=== PATIENT | female | born 1990 ===

== ENCOUNTER 2016-07-31 01:33 | Emergency (ER) | payer SELFPAY ==
--- NOTE | 2016-07-31 02:10 | ED CLINICAL REPORT ---
Clinical Report - Physicians/Mid Levels [facility] [address] [place] [address] 07/31/2016 1:34 Patient: NANCY MULLINS Time Seen: 01:55. Arrived- By private vehicle. Historian- patient. HISTORY OF PRESENT ILLNESS Chief Complaint: SKIN RASH. This started about 3 days ago and is still present. It is described as itchy. It has been located on the trunk, right upper extremity and right lower extremity. A possible cause has been identified (PT states she is homeless, and has been staying somewhere different every night. She woke up with the lesions one morning. Pt thinks she's been bitten, but is not sure by what.). Similar symptoms previously: None. Recent medical care: Not recently seen/assessed. REVIEW OF SYSTEMS No fever, chills, sore throat, cough or hoarseness. No lump in throat, enlarged lymph nodes, headache, eye irritation or chest pain. No abdominal pain, nausea, diarrhea, difficulty with urination or joint pain. No vomiting. The patient has had mild difficulty breathing (PT states she has been wheezing.). Dental pain. All systems otherwise negative, except as recorded above. SOCIAL HISTORY Smoker- current status unknown. History of drug use opiates: marijuana. No alcohol use. ADDITIONAL NOTES The nursing notes have been reviewed. PHYSICAL EXAM Vital Signs: 07/31/2016 01:39 BP: 117/76. HR: 114. RR: 19. O2 saturation: 98%. Temp: 98.2 F. Pain level now: 6/10. Have been reviewed. Appearance: Alert. Oriented X3. No acute distress. Eyes: Pupils equal, round and reactive to light. Conjunctivae and eyelids normal. ENT: Nose normal. ( Pt has severe dental decay, with multiple tender teeth, but no swelling of gingiva or fluctuance.). Neck: Neck supple. CVS: Normal heart rate and rhythm. Heart sounds normal. Respiratory: No respiratory distress. Expiratory moderate bilateral wheezes diffusely. Mild bilateral rhonchi present diffusely. Abdomen: Nontender. No organomegaly. Skin: Skin warm and dry. Normal skin color. (Pt has 1-2 cm diameter, raised welts on her bilateral hands and low back, resembling large insect bites.). Extremities: Normal external inspection. Extremities nontender. Neuro: (Grossly intact.). LABS, X-RAYS, AND EKG Pulse Oximetry: 07/31/2016 01:39 O2 saturation: 98%. (FIO2 - room air). Interpretation: normal. PROGRESS AND PROCEDURES Course of Care: Pt was given amoxicillin, a duoneb, prednisone, and Benadryl. I suspected bed-bug bites, and discussed this with the pt. Patient counseled in person regarding the patient's stable condition, diagnosis and need for follow-up. Concerns were addressed. Old medical records reviewed. Disposition: Discharged. Condition: stable. CLINICAL IMPRESSION Multiple unknown insect bites to the lower back, right hand and left hand. Right. Left. Dental abscess. INSTRUCTIONS Warnings: GENERAL WARNINGS: Return or contact your physician immediately if your condition worsens or changes unexpectedly, if not improving as expected, or if other problems arise. Prescription Medications: Prednisone 20 mg: take 3 orally every day for 3 days. Dispense sufficient quantity. No refills. Amoxicillin 500 mg tablets: take 1 orally every 8 hours for 10 days. No refills. Albuterol HFA oral inhaler: inhale 2 puffs every 4 hours as needed for wheezing, difficulty breathing or shortness of breath. Dispense one (1) unit. No refill. OTC Medications: Benadryl Allergy 25 mg (available over the counter): take 1-2 orally every 6 hours as needed for itching. Dispense twenty-five (25). No refill. Substitution is permissible. Follow-up: Follow up with a dentist. Call for the next available appointment. Understanding of the discharge instructions verbalized by patient. Follow-up with: [facility], , , [address], , [place], [address] Follow up. Call for the next available appointment. Reason for referral: Establish care. (Electronically signed by Traecy Fofana MD 07/31/2016 2:59)
--- NOTE | 2016-07-31 02:10 | ED NURSING NOTES ---
Clinical Report - Nurses [facility] [address] [place] [address] 07/31/2016 1:34 Patient: NANCY MULLINS TRIAGE Triage time 01:41. Acuity: LEVEL 4. Chief Complaint: SKIN RASH and . pt states having small red spots on arms and back for 2 days. Alert. SUE COMA SCORE: [place] Coma Scale: 15- eyes open spontaneously (4); best verbal response- oriented x 4 (5); best motor response- obeys commands (6). --01:46 Sen Summers R.N. 01:39 07/31/16. BP: 117/76. HR: 114. RR: 19 (regular and unlabored). O2 saturation: 98%. Temp: 98.2 F (oral). Pain level now: 10/10. --01:46 Sen Summers R.N. Weight: 63.9 kg stated. Height/Length: 67 inches Per Patient. BMI: 22.1. --01:41 Sen Summers R.N. Medications None. --01:43 Sen Summers R.N. Allergies No Known Drug Allergy. --01:43 Sen Summers R.N. History Arrived by private vehicle. Historian: patient. Unaccompanied. Reported as (bilateral arms and lower back). It is described as itchy. PAST MEDICAL HX: Last normal menstrual period- now. Denies current . ( pt denies being and states that she is on her period). SOCIAL HX: Heavy tobacco smoker (cigarette)- less than 1 pack per day. History of weekly drug use: narcotics, marijuana. No alcohol use. --01:46 Sen Summers R.N. PROBLEMS: Pneumonia. Back Pain. Dental Pain. Dental Caries. Myofascial Strain. Compression Fracture Spine. Fracture back. --01:44 Sen Summers R.N. ADDITIONAL SURGERIES: no known surgeries. Interventions ID band on patient. To treatment room. --01:46 Sen Summers R.N. NURSING PROGRESS NOTES Reassurance given. Two patient identifiers checked. Call light placed in reach. Side rails up x 1. Bed placed in lowest position. Brakes of bed on. Patient ready for evaluation- chart flagged. Patient waiting for evaluation. --01:47 Sen Summers R.N. ( pt states that she has been sleeping in multiple different locations recently.). --02:02 Sen Summers R.N. 02:13 07/31/2016 Benadryl (DiphenhydrAMINE HCl) PO 25 mg given. Allergies verified, confirmed 5 rights and sedative warning given to the patient. --02:18 Sen Summers R.N. 02:13 07/31/2016 Prednisone PO 60 mg given. Allergies verified and confirmed 5 rights. --02:18 Sen Summers R.N. 02:18 07/31/2016 EMLA Cream (Lidocaine-Prilocaine) Topical Cream 1 application. Applied to the right upper arm and left upper arm. --02:18 Sen Summers R.N. 02:22 07/31/2016 Amoxicillin PO Capsules 500 mg given. Allergies verified and confirmed 5 rights. --02:22 Sen Summers R.N. 02:23 07/31/2016 Duoneb (Ipratropium-Albuterol) Neb TX Nebulizer 1 unit dose given. Given by the respiratory therapist. Allergies verified and confirmed 5 rights. --02:23 Sen Summers R.N. DISPOSITION / DISCHARGE Departure time: 02:42. Condition at departure: stable. No learning barriers present. Discharge instructions provided and reviewed with the patient. Reviewed warnings. Reviewed medication(s) side effects, precautions, dosing and course information. Prescription(s) given to the patient. Treatments reviewed. Reviewed referrals for followup. Patient verbalized understanding. Written instructions provided in Upper Sorbian. The patient was discharged home and accompanied by asic engineer. She left the Emergency Department ambulatory and via private vehicle. Brooch And Bracelet Maker driving. --02:42 Sen Summers R.N. 02:41 07/31/16. RR: 19 (regular and unlabored). O2 saturation: 100% on room air. --02:42 Sen Summers R.N. Locked/Released at 07/31/2016 2:43 by Sen Summers R.N.
--- NOTE | 2016-07-31 02:10 | ED CLINICAL REPORT ---
Clinical Report - Physicians/Mid Levels [facility] [address] [place] [address] 07/31/2016 1:34 Patient: NANCY MULLINS Time Seen: 01:55. Arrived- By private vehicle. Historian- patient. HISTORY OF PRESENT ILLNESS Chief Complaint: SKIN RASH. This started about 3 days ago and is still present. It is described as itchy. It has been located on the trunk, right upper extremity and right lower extremity. A possible cause has been identified (PT states she is homeless, and has been staying somewhere different every night. She woke up with the lesions one morning. Pt thinks she's been bitten, but is not sure by what.). Similar symptoms previously: None. Recent medical care: Not recently seen/assessed. REVIEW OF SYSTEMS No fever, chills, sore throat, cough or hoarseness. No lump in throat, enlarged lymph nodes, headache, eye irritation or chest pain. No abdominal pain, nausea, diarrhea, difficulty with urination or joint pain. No vomiting. The patient has had mild difficulty breathing (PT states she has been wheezing.). Dental pain. All systems otherwise negative, except as recorded above. SOCIAL HISTORY Smoker- current status unknown. History of drug use opiates: marijuana. No alcohol use. ADDITIONAL NOTES The nursing notes have been reviewed. PHYSICAL EXAM Vital Signs: 07/31/2016 01:39 BP: 117/76. HR: 114. RR: 19. O2 saturation: 98%. Temp: 98.2 F. Pain level now: 6/10. Have been reviewed. Appearance: Alert. Oriented X3. No acute distress. Eyes: Pupils equal, round and reactive to light. Conjunctivae and eyelids normal. ENT: Nose normal. ( Pt has severe dental decay, with multiple tender teeth, but no swelling of gingiva or fluctuance.). Neck: Neck supple. CVS: Normal heart rate and rhythm. Heart sounds normal. Respiratory: No respiratory distress. Expiratory moderate bilateral wheezes diffusely. Mild bilateral rhonchi present diffusely. Abdomen: Nontender. No organomegaly. Skin: Skin warm and dry. Normal skin color. (Pt has 1-2 cm diameter, raised welts on her bilateral hands and low back, resembling large insect bites.). Extremities: Normal external inspection. Extremities nontender. Neuro: (Grossly intact.). LABS, X-RAYS, AND EKG Pulse Oximetry: 07/31/2016 01:39 O2 saturation: 98%. (FIO2 - room air). Interpretation: normal. PROGRESS AND PROCEDURES Course of Care: Pt was given amoxicillin, a duoneb, prednisone, and Benadryl. I suspected bed-bug bites, and discussed this with the pt. Patient counseled in person regarding the patient's stable condition, diagnosis and need for follow-up. Concerns were addressed. Old medical records reviewed. Disposition: Discharged. Condition: stable. CLINICAL IMPRESSION Multiple unknown insect bites to the lower back, right hand and left hand. Right. Left. Dental abscess. INSTRUCTIONS Warnings: GENERAL WARNINGS: Return or contact your physician immediately if your condition worsens or changes unexpectedly, if not improving as expected, or if other problems arise. Prescription Medications: Prednisone 20 mg: take 3 orally every day for 3 days. Dispense sufficient quantity. No refills. Amoxicillin 500 mg tablets: take 1 orally every 8 hours for 10 days. No refills. Albuterol HFA oral inhaler: inhale 2 puffs every 4 hours as needed for wheezing, difficulty breathing or shortness of breath. Dispense one (1) unit. No refill. OTC Medications: Benadryl Allergy 25 mg (available over the counter): take 1-2 orally every 6 hours as needed for itching. Dispense twenty-five (25). No refill. Substitution is permissible. Follow-up: Follow up with a dentist. Call for the next available appointment. Understanding of the discharge instructions verbalized by patient. Follow-up with: [facility], , , [address], , [place], [address] Follow up. Call for the next available appointment. Reason for referral: Establish care. (Electronically signed by Tracey Fofana MD 07/31/2016 2:59)
--- NOTE | 2016-07-31 02:10 | ED NURSING NOTES ---
Clinical Report - Nurses [facility] [address] [place] [address] 07/31/2016 1:34 Patient: NANCY MULLINS TRIAGE Triage time 01:41. Acuity: LEVEL 4. Chief Complaint: SKIN RASH and . pt states having small red spots on arms and back for 2 days. Alert. SUE COMA SCORE: [place] Coma Scale: 15- eyes open spontaneously (4); best verbal response- oriented x 4 (5); best motor response- obeys commands (6). --01:46 Sen Summers R.N. 01:39 07/31/16. BP: 117/76. HR: 114. RR: 19 (regular and unlabored). O2 saturation: 98%. Temp: 98.2 F (oral). Pain level now: 10/10. --01:46 Sen Summers R.N. Weight: 63.9 kg stated. Height/Length: 67 inches Per Patient. BMI: 22.1. --01:41 Sen Summers R.N. Medications None. --01:43 Sen Summers R.N. Allergies No Known Drug Allergy. --01:43 Sen Summers R.N. History Arrived by private vehicle. Historian: patient. Unaccompanied. Reported as (bilateral arms and lower back). It is described as itchy. PAST MEDICAL HX: Last normal menstrual period- now. Denies current . ( pt denies being and states that she is on her period). SOCIAL HX: Heavy tobacco smoker (cigarette)- less than 1 pack per day. History of weekly drug use: narcotics, marijuana. No alcohol use. --01:46 Sen Summers R.N. PROBLEMS: Pneumonia. Back Pain. Dental Pain. Dental Caries. Myofascial Strain. Compression Fracture Spine. Fracture back. --01:44 Sen Summers R.N. ADDITIONAL SURGERIES: no known surgeries. Interventions ID band on patient. To treatment room. --01:46 Sen Summers R.N. NURSING PROGRESS NOTES Reassurance given. Two patient identifiers checked. Call light placed in reach. Side rails up x 1. Bed placed in lowest position. Brakes of bed on. Patient ready for evaluation- chart flagged. Patient waiting for evaluation. --01:47 Sen Summers R.N. ( pt states that she has been sleeping in multiple different locations recently.). --02:02 Sen Summers R.N. 02:13 07/31/2016 Benadryl (DiphenhydrAMINE HCl) PO 25 mg given. Allergies verified, confirmed 5 rights and sedative warning given to the patient. --02:18 Sen Summers R.N. 02:13 07/31/2016 Prednisone PO 60 mg given. Allergies verified and confirmed 5 rights. --02:18 Sen Summers R.N. 02:18 07/31/2016 EMLA Cream (Lidocaine-Prilocaine) Topical Cream 1 application. Applied to the right upper arm and left upper arm. --02:18 Sen Summers R.N. 02:22 07/31/2016 Amoxicillin PO Capsules 500 mg given. Allergies verified and confirmed 5 rights. --02:22 Sen Summers R.N. 02:23 07/31/2016 Duoneb (Ipratropium-Albuterol) Neb [place] Nebulizer 1 unit dose given. Given by the respiratory therapist. Allergies verified and confirmed 5 rights. --02:23 Sen Summers R.N. DISPOSITION / DISCHARGE Departure time: 02:42. Condition at departure: stable. No learning barriers present. Discharge instructions provided and reviewed with the patient. Reviewed warnings. Reviewed medication(s) side effects, precautions, dosing and course information. Prescription(s) given to the patient. Treatments reviewed. Reviewed referrals for followup. Patient verbalized understanding. Written instructions provided in Uzbek. The patient was discharged home and accompanied by screen writer. She left the Emergency Department ambulatory and via private vehicle. Oral Therapist driving. --02:42 Sen Summers R.N. 02:41 07/31/16. RR: 19 (regular and unlabored). O2 saturation: 100% on room air. --02:42 Sen Summers R.N. Locked/Released at 07/31/2016 2:43 by Sen Summers R.N.
--- NOTE | 2016-07-31 02:10 | ED ORDER SUMMARY ---
..... Patient: NANCY MULLINS OrderSheet [facility] VisitID: [id number] [place] [address] 26y, F Registration Date/Time: 07/31/2016 ORDER SHEET Weight: 63.9 kg (stated) Allergies: No Known Drug Allergy GENERAL ORDERS: MEDICATION ORDERS: Benadryl PO 25 mg (NOW) (02:05 07/31/2016 Chano CARTER) (2:18 DDavis R.N.) Prednisone PO 60 mg (NOW) (02:05 07/31/2016 Chano CARTER) (2:18 DDavis R.N.) EMLA Cream Topical 1 application (NOW) (02:05 07/31/2016 Chano CARTER) (2:18 DDavis R.N.) Amoxicillin PO 500 mg (NOW) (02:08 07/31/2016 Chano CARTER) (2:22 DDavis R.N.) DuoNeb Neb Tx 1 unit dose (NOW) (02:14 07/31/2016 Chano CARTER) (2:23 DDavis R.N.) IV FLUIDS: ORDER SHEET NOTES: [Electronically signed by Sen Summers R.N. (02:43 07/31/2016)] [Electronically signed by Tracey Fofana MD (02:59 07/31/2016)] [Electronically locked/signed by Sen Summers R.N. (02:43 07/31/2016)]
--- NOTE | 2016-07-31 02:10 | ED ORDER SUMMARY ---
..... Patient: NANCY MULLINS OrderSheet [facility] VisitID: [id number] [place] [address] 26y, F Registration Date/Time: 07/31/2016 ORDER SHEET Weight: 63.9 kg (stated) Allergies: No Known Drug Allergy GENERAL ORDERS: MEDICATION ORDERS: Benadryl PO 25 mg (NOW) (02:05 07/31/2016 Chano CARTER) (2:18 DDavis R.N.) Prednisone PO 60 mg (NOW) (02:05 07/31/2016 Chano CARTER) (2:18 DDavis R.N.) EMLA Cream Topical 1 application (NOW) (02:05 07/31/2016 Chano CARTER) (2:18 DDavis R.N.) Amoxicillin PO 500 mg (NOW) (02:08 07/31/2016 Chano CARTER) (2:22 DDavis R.N.) DuoNeb Neb Tx 1 unit dose (NOW) (02:14 07/31/2016 Chano CARTER) (2:23 DDavis R.N.) IV FLUIDS: ORDER SHEET NOTES: [Electronically signed by Sen Summers R.N. (02:43 07/31/2016)] [Electronically signed by Tracey Fofana MD (02:59 07/31/2016)] [Electronically locked/signed by Sen Summers R.N. (02:43 07/31/2016)]
--- NOTE | 2016-07-31 03:00 | ED MED RECONCILIATION SUMMARY ---
Patient: NANCY MULLINS Medication Reconciliation Report [facility] VisitID: [id number] [place] [address] 26y, F Registration Date/Time: 07/31/2016 Weight: 63.9 kg Height/Length: 67 in. BMI: 22.1 ALLERGIES: No Known Drug Allergy The patient's Home Medications are listed below: NONE. The source(s) of the original Home Medication information: Not obtained. The following Medications were given to the patient in the Emergency Department: EMLA Cream [Topical] Topical 1 application, administered: 07/31/2016 2:18:00 AM Benadryl [PO] PO 25 mg, administered: 07/31/2016 2:13:00 AM Prednisone [PO] PO 60 mg, administered: 07/31/2016 2:13:00 AM Amoxicillin [PO] PO 500 mg, administered: 07/31/2016 2:22:00 AM Duoneb [Neb Tx] Neb TX 1 unit dose, administered: 07/31/2016 2:23:00 AM The following Medications were prescribed to the patient: Benadryl Allergy 25 mg (available over the counter): take 1-2 orally every 6 hours as needed for itching. Dispense twenty-five (25). No refill. Substitution is permissible. -- Tracey Fofana MD Prednisone 20 mg: take 3 orally every day for 3 days. Dispense sufficient quantity. No refills. -- Tracey Fofana MD Amoxicillin 500 mg tablets: take 1 orally every 8 hours for 10 days. No refills. -- Tracey Fofana MD Albuterol HFA oral inhaler: inhale 2 puffs every 4 hours as needed for wheezing, difficulty breathing or shortness of breath. Dispense one (1) unit. No refill. -- Tracey Fofana MD
--- NOTE | 2016-07-31 03:00 | ED MAR SUMMARY ---
..... Medication Administration Record [facility] [address] [place] [address] Patient: NANCY MULLINS Visit ID: [id number] 26y, F Weight: 63.9 kg Height/Length: 67 in BMI: 22.1 ALLERGIES: No Known Drug Allergy Given 02:07/31/2016 Sen Summers R.N. Medication Administered: BENADRYL [PO] (DIPHENHYDRAMINE HCL), Dose: 25 mg PO. Medication Ordered: Benadryl PO 25 mg (NOW). Given 02:07/31/2016 Sen Summers R.N. Medication Administered: PREDNISONE [PO], Dose: 60 mg PO. Medication Ordered: Prednisone PO 60 mg (NOW). Given 02:07/31/2016 Sen Summers R.N. Medication Administered: EMLA CREAM [TOPICAL] (LIDOCAINE-PRILOCAINE), Dose: 1 application Cream Topical. Medication Ordered: EMLA Cream Topical 1 application (NOW). Given 02:07/31/2016 Sen Summers R.N. Medication Administered: AMOXICILLIN [PO], Dose: 500 mg Capsules PO. Medication Ordered: Amoxicillin PO 500 mg (NOW). Given 02:07/31/2016 Sen Summers R.N. Medication Administered: DUONEB [NEB TX] (IPRATROPIUM-ALBUTEROL), Dose: 1 unit dose Nebulizer Neb TX. Medication Ordered: DuoNeb Neb Tx 1 unit dose (NOW).
--- NOTE | 2016-07-31 03:00 | ED DISCHARGE INSTRUCTIONS ---
Patient: NANCY MULLINS General Instructions Located Within [facility] VisitID: [id number] [address] [place] [address] 26y, F Registration Date/Time: 07/31/2016 Multiple unknown insect bites to the lower back, right hand and left hand. Right. Left. Dental abscess. INSTRUCTIONS Warnings: GENERAL WARNINGS: Return or contact your physician immediately if your condition worsens or changes unexpectedly, if not improving as expected, or if other problems arise. Prescription Medications: Prednisone 20 mg: take 3 orally every day for 3 days. Dispense sufficient quantity. No refills. Amoxicillin 500 mg tablets: take 1 orally every 8 hours for 10 days. No refills. Albuterol HFA oral inhaler: inhale 2 puffs every 4 hours as needed for wheezing, difficulty breathing or shortness of breath. Dispense one (1) unit. No refill. OTC Medications: Benadryl Allergy 25 mg (available over the counter): take 1-2 orally every 6 hours as needed for itching. Dispense twenty-five (25). No refill. Substitution is permissible. Follow-up: Follow up with a dentist. Call for the next available appointment. Understanding of the discharge instructions verbalized by patient. Follow-up with: [facility], , , [address], [place], [id number] Follow up. Call for the next available appointment. Reason for referral: Establish care. ADDITIONAL INFORMATION Insect Sting:Local Reaction You have been stung or bitten by an insect. The insects venom or body fluid is causing your skin to react in the area where you were stung or bitten. This often causes redness, itching and swelling. This reaction will fade over a few hours to a few days. An insect bite/sting can become infected 1-3 days later, so watch for the signs below. Sometimes it is hard to tell the difference between a local reaction to the insect bite/sting and an early infection, so antibiotics may be started. Home Care: If itching is a problem, avoid things that heat up your skin (hot showers or baths, direct sunlight) since this will make itching worse. An ice pack (ice cubes in a plastic bag, wrapped in a towel) will reduce local areas of redness and itching. Lanacaine cream or Solarcaine spray (or other product containing "benzocaine") will reduce the itching. Oral Benadryl (diphenhydramine) is an antihistamine available at drug and grocery stores. Unless a prescription antihistamine was given, Benadryl may be used to reduce itching if large areas of the skin are involved. Use lower doses during the daytime and higher doses at bedtime since the drug may make you sleepy. [NOTE: Do not use Benadryl if you have glaucoma or if you are a man with trouble urinating due to an enlarged prostate.] Claritin (loratadine) is an antihistamine that causes less drowsiness and is a good alternative for daytime use. If oral ANTIBIOTICS were prescribed, be sure to take them until finished. You may use acetaminophen (Tylenol) or ibuprofen (Motrin, Advil) to control pain, unless another pain medicine was prescribed. [NOTE: If you have chronic liver or kidney disease or ever had a stomach ulcer or GI bleeding, talk with your doctor before using these medicines.] Preventing Future Reactions: Future reactions could be worse than this one, so try to avoid situations where you might be stung again. Be aware that honeybees nest in trees. Wasps and yellow jackets nest in the ground, trees or roof eaves. If you are stung by a honeybee a stinger will remain in your skin. Wasps, yellow jackets, hornets do not leave a stinger behind. Move away from the nest area immediately. The stinger of a honeybee releases a substance that will attract other bees to you. Once you are away from the nest, then remove the stinger as quickly as possible. After any sting, you may apply ice and take Benadryl or other antihistamine. If you develop any of the warning signs below, seek help immediately. If you are at high risk for another sting or if your reaction included dizziness, fainting or trouble breathing or swallowing, ask your doctor for an Insect Allergy Kit. Follow Up with your doctor or this facility in two days if your symptoms do not start to improve. Get Prompt Medical Attention if any of the following occur: Spreading areas of itching, redness or swelling New or worse swelling in the face, eyelids, lips, mouth, throat or tongue Trouble swallowing or breathing Dizziness, weakness or fainting Signs of infection: Spreading redness Increased pain or swelling Fever of 100.4F (38C) or higher, or as directed by your healthcare provider Colored fluid draining from the wound Dental Abscess A dental abscess is an infection of the tooth socket. It often starts with a crack or cavity in the tooth. A pocket of pus forms between the tooth and the bone. The infection causes pain and swelling of the gum, cheek or jaw. The pain is often made worse by drinking hot or cold fluids, or biting on hard foods. Pain may be felt in the facial sinus or in the ear. A severe infection can interfere with swallowing and breathing. In the emergency department or clinic, you will be started on an antibiotic. However, final treatment requires drainage of the pus. This can be done by removing the tooth or performing a root canal. A root canal is done by an oral surgeon and involves drilling an opening in the tooth to drain the pus. After the infection has healed, a crown is placed over the tooth. Home care The following guidelines will help you care for your abscess at home: Avoid hot and cold foods and liquids since your tooth may be sensitive to temperature changes. If your tooth is chipped or cracked, or if there is a large open cavity, applyoil of cloves(available zwji-nfe-fuebroq in drug stores) directly to the tooth to reduce pain. Some pharmacies carry an tjzh-gkm-ttvtibe "toothache kit". This contains oil of cloves and a paste, which can be applied over the exposed tooth to decrease sensitivity. Apply an ice pack (ice cubes in a plastic bag, wrapped in a towel) over the injured area for 20 minutes every 12 hours the first day for pain relief. Continue this 34 times a day until the pain and swelling goes away. You may use acetaminophen or ibuprofen to control pain, unless another medicine was prescribed. If you have chronic liver or kidney disease or ever had a stomach ulcer or GI bleeding, talk with your doctor before using these medicines. An antibiotic will be prescribed. Take it as directed until completed, even if you are feeling better sooner. Follow-up care Follow up as directed with a dentist or oral surgeon. Even though your pain may improve with the treatment given today, only a dentist or oral surgeon can provide full treatment for this problem. When to seek medical care Get prompt medical attention or contact your doctor if any of the following occur: Your face or eyelid becomes swollen or red Pain worsens or spreads to the neck Fever over 100.4F (38.0C) Unusual drowsiness; headache or stiff neck; weakness, or fainting Pus drains from the gum or tooth Difficulty talking, swallowing or breathing Unable to open your mouth wide You have been given the following additional information: Allergic Reaction, Insect (Local) Tooth Abscess (Electronically signed by Tracey Fofana MD 07/31/2016 2:59)
--- NOTE | 2016-07-31 03:00 | ED MAR SUMMARY ---
..... Medication Administration Record [facility] [address] [place] [address] Patient: NANCY MULLINS Visit ID: [id number] 26y, F Weight: 63.9 kg Height/Length: 67 in BMI: 22.1 ALLERGIES: No Known Drug Allergy Given 02:07/31/2016 Sen Summers R.N. Medication Administered: BENADRYL [PO] (DIPHENHYDRAMINE HCL), Dose: 25 mg PO. Medication Ordered: Benadryl PO 25 mg (NOW). Given 02:07/31/2016 Sen Summers R.N. Medication Administered: PREDNISONE [PO], Dose: 60 mg PO. Medication Ordered: Prednisone PO 60 mg (NOW). Given 02:07/31/2016 Sen Summers R.N. Medication Administered: EMLA CREAM [TOPICAL] (LIDOCAINE-PRILOCAINE), Dose: 1 application Cream Topical. Medication Ordered: EMLA Cream Topical 1 application (NOW). Given 02:07/31/2016 Sen Summers R.N. Medication Administered: AMOXICILLIN [PO], Dose: 500 mg Capsules PO. Medication Ordered: Amoxicillin PO 500 mg (NOW). Given 02:07/31/2016 Sen Summers R.N. Medication Administered: DUONEB [NEB TX] (IPRATROPIUM-ALBUTEROL), Dose: 1 unit dose Nebulizer Neb TX. Medication Ordered: DuoNeb Neb Tx 1 unit dose (NOW).
--- NOTE | 2016-07-31 03:00 | ED MED RECONCILIATION SUMMARY ---
Patient: NANCY MULLINS Medication Reconciliation Report [facility] VisitID: [id number] [place] [address] 26y, F Registration Date/Time: 07/31/2016 Weight: 63.9 kg Height/Length: 67 in. BMI: 22.1 ALLERGIES: No Known Drug Allergy The patient's Home Medications are listed below: NONE. The source(s) of the original Home Medication information: Not obtained. The following Medications were given to the patient in the Emergency Department: EMLA Cream [Topical] Topical 1 application, administered: 07/31/2016 2:18:00 AM Benadryl [PO] PO 25 mg, administered: 07/31/2016 2:13:00 AM Prednisone [PO] PO 60 mg, administered: 07/31/2016 2:13:00 AM Amoxicillin [PO] PO 500 mg, administered: 07/31/2016 2:22:00 AM Duoneb [Neb Tx] Neb TX 1 unit dose, administered: 07/31/2016 2:23:00 AM The following Medications were prescribed to the patient: Benadryl Allergy 25 mg (available over the counter): take 1-2 orally every 6 hours as needed for itching. Dispense twenty-five (25). No refill. Substitution is permissible. -- Tracey Fofana MD Prednisone 20 mg: take 3 orally every day for 3 days. Dispense sufficient quantity. No refills. -- Tracey Fofana MD Amoxicillin 500 mg tablets: take 1 orally every 8 hours for 10 days. No refills. -- Tracey Fofana MD Albuterol HFA oral inhaler: inhale 2 puffs every 4 hours as needed for wheezing, difficulty breathing or shortness of breath. Dispense one (1) unit. No refill. -- Tracey Fofana MD
== END 2016-07-31 02:30 | disposition home or self-care (01) ==
LOC: ED SRH 01:33
DX: S30.860A Insect bite (nonvenomous) of lower back and pelvis, initial encounter (principal); S60.562A Insect bite (nonvenomous) of left hand, initial encounter; S60.561A Insect bite (nonvenomous) of right hand, initial encounter; K04.7 Periapical abscess without sinus; R06.00 Dyspnea, unspecified; Y93.9 Activity, unspecified; Y99.9 Unspecified external cause status; Y92.9 Unspecified place or not applicable; W57.XXXA Bitten or stung by nonvenomous insect and other nonvenomous arthropods, initial encounter; Z59.0 Homelessness